=== PATIENT | male | born 1975 | race Caucasian/White ===

== ENCOUNTER 2018-05-17 18:19 | Emergency (ER) | payer OTHER ==
[2018-05-17] MEDS: SODIUM CHLORIDE 0.9% 1L IRRIG IRR (19:16)
[2018-05-17] MEDS: LIDOCAINE 2% (MDV) 20 ML INJ INJ (19:27)
== END 2018-05-17 20:48 | disposition home or self-care (01) ==
LOC: FTE 18:19
DX: S01.81XA Laceration without foreign body of other part of head, initial encounter (principal); W22.8XXA Striking against or struck by other objects, initial encounter; Y92.9 Unspecified place or not applicable
CPT/HCPCS: 12011; 70450; 99284-25